=== PATIENT | male | born 1945 | race Caucasian/White ===

== ENCOUNTER 2018-02-08 08:15 | Day surgery (SDC) | payer OTHER, BC ==
[2018-02-08 09:07] VITALS: BMI 40.3
[2018-02-08 10:11] VITALS: TEMP 97.7
[2018-02-08 12:45] VITALS: BP 137/60; PULSE 72
--- NOTE | 2018-02-09 15:13 | PATH ---
Surgical Pathology Report Patient Name: KRISTIAN MAE [facility]. Rec. #: [id number] /Age/Gender: 1945 (Age: 72) / M Account: [id number] Location: [facility]-ENDOSCOPY Taken: 02/08/2018 Received: 02/08/2018 Reported: 02/09/2018 Physicians: Giovany Campos M.D. Specimen(s) Received A: BX POLYP TRANSVERSE COLON B: BX CECAL POLYP C: BX POLYP HEPATIC FLEXURE Clinical History Screening Postoperative diagnosis: Diverticulosis, colon polyp Final Diagnosis A. TRANSVERSE COLON, POLYP, POLYPECTOMY: TUBULAR ADENOMA. B. CECUM, POLYPS, POLYPECTOMY: TUBULAR ADENOMA. HYPERPLASTIC POLYP. C. COLON, HEPATIC FLEXURE, POLYP, POLYPECTOMY: TUBULAR ADENOMA. Electronically Signed Rebekah Fish M.D. Gross Description A. Received in formalin, labeled "polyp transverse colon" are 2 mosqueda, irregular portions of soft tissue measuring 0.3 and 0.5 cm. in greatest dimension. The specimens are submitted in toto in one cassette. B. Received in formalin, labeled "biopsy cecal polyps" are 2 mosqueda, irregular portions of soft tissue measuring 0.2 and 0.3 cm. in greatest dimension. The specimens are submitted in toto in one cassette. C. Received in formalin, labeled "polyp hepatic flexure" are 2 mosqueda, irregular portions of soft tissue measuring 0.3 and 0.5 cm. in greatest dimension. The specimens are submitted in toto in one cassette. 02/08/2018 saudi02/08/2018
== END 2018-02-08 11:05 | disposition home or self-care (01) ==
LOC: JASU-ENDO 08:15
PROVIDERS: ATTEND Internal Medicine Gastroenterology
PROC: 0DBH8ZX Excision of Cecum, Via Natural or Artificial Opening Endoscopic, Diagnostic (ICD-10-PCS; 2018-02-08)
PROC: 0DBL8ZX Excision of Transverse Colon, Via Natural or Artificial Opening Endoscopic, Diagnostic (ICD-10-PCS; principal; 2018-02-08 09:00)
DX: Z12.11 Encounter for screening for malignant neoplasm of colon (principal); Z86.010 Personal history of colon polyps; Z80.0 Family history of malignant neoplasm of digestive organs; K63.5 Polyp of colon; K57.30 Diverticulosis of large intestine without perforation or abscess without bleeding; K64.8 Other hemorrhoids
CPT/HCPCS: 88305-TC